=== PATIENT | female | born 1970 | race Caucasian/White ===

== ENCOUNTER 2024-12-24 01:18 | Day surgery (SDC) | payer BC, SELFPAY ==
--- OUTSIDE RECORDS SUMMARY | 2024-09-02 04:20 | XMS_ITS | Continuity of Care Document ---
Author Organization [facility] Address [address] [place] [address] Phone Care Team Providers Care Assembler [employer] Name Role Phone Ye JESSICA, Carl Unavailable Unavailable Allergies, Adverse Reactions, Alerts Substance Reaction Status Criticality azithromycin Erythema Active No Information Sulfa (Sulfonamide Antibiotics) HivesHives Active No Information Medications Medication Instructions Dosage Effective Dates (start - stop) Status Comments Dupixent 300 mg/2 mL subcutaneous syringe inject 2 milliliter by subcutaneous route every 2 weeks in the abdomen, thigh, or upper arm rotating injection sites 300 MG - Active benzonatate 200 mg capsule take as directed - Active metformin ER 500 mg tablet,extended release 24 hr take as directed - Active FreeStyle Lite Strips take as directed - Active FreeStyle Lancets 28 gauge take as directed - Active Breztri Aerosphere 160 mcg-9mcg-4.8mcg/actuat ion HFA aerosol inhaler take as directed - Active Zepbound 15 mg/0.5 mL subcutaneous pen injector take as directed - Active albuterol sulfate HFA 90 mcg/actuation aerosol inhaler take as directed - Active lisinopril 20 mg-hydrochlorothiazide 12.5 mg tablet take as directed - Active bupropion HCl 150 mg tablet,12 hr sustained-release(smok ing deterrent) take as directed - Active triamcinolone acetonide 0.1 % topical cream take as directed - Active FreeStyle Lite Meter kit take as directed - Active ipratropium 0.5 mg-albuterol 3 mg (2.5 mg base)/3 mL nebulization soln take as directed - Active fluconazole 150 mg tablet take as directed - Active ciclopirox 8 % topical solution take as directed - Active hydrocortisone 2.5 % topical cream take as directed - Active ondansetron HCl 8 mg tablet take as directed - Active nystatin 100,000 unit/gram topical cream take as directed - Active cholecalciferol (vitamin D3) 50 mcg (2,000 unit) capsule take as directed - Active montelukast 10 mg tablet take as directed - No Longer Active Procedures Procedure Date Health Risk Assesment Patient Focused Est (Level 4) OFFICE/OUTPATIENT VISIT Highly Complex Drug Administration (Biol ogic) Est (Level 4) OFFICE/OUTPATIENT VISIT Dupixent Health Risk Assesment Patient Focused Est (Level 4) OFFICE/OUTPATIENT VISIT Health Risk Assesment Patient Focused Highly Complex Drug Administration (Biol ogic) Additional Highly Complex Drug Administr ation (Biologic) Est (Level 4) OFFICE/OUTPATIENT VISIT Dupixent Health Risk Assesment Patient Focused No New (Level 4) OFFICE/OUTPATIENT VISIT 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 , [place], [address], [place]. tel:[phone] Referring Provider: [place], [address] [place] [address], [address] [place] [address], [facility]. tel:[phone] Est (Level 4) OFFICE/OUTPA TIENT VISIT [facility], [address] [place] [address], [id number], tel:[phone] [facility] Dupixent (chief complaint) Body mass index (BMI) 31.0-31.9, adultSevere persistent asthmaCOPDChroni c rhinitis Fe [address] , [place], [address], [place]. tel:[phone] Referring Provider: [place] [facility], [address] [place] [address], [address] [place] [address], [facility]. tel:[phone] Est (Level 4) OFFICE/OUTPA TIENT VISIT [facility], [address] [place] [address], [id number], [place] tel:[phone] [facility] Dupixent (chief complaint) Severe persistent asthmaCOPDChroni c rhinitisBody mass index (BMI) 31.0-31.9, adult [address]. [address] [place], [address], [place]. tel:[phone] Referring Provider: [place], [address] [place] [address], [address] [place] [address], [facility]. tel:[phone] Est (Level 4) OFFICE/OUTPA TIENT VISIT [facility], [address] [place] [address], [id number], tel:[phone] [facility] Dupixent (chief complaint) Body mass index (BMI) 32.0-32.9, adultSevere persistent asthmaCOPDChroni c rhinitis [address], [place], [address], [place]. tel:[phone] Referring Provider: [place], [address] [place] [address], [address] [place] [address], [address]. tel:[phone] [facility], [address] [place] [address], [id number], tel:[phone] [facility] No Information [address] [place], [address], [place]. tel:[phone] New (Level 4) OFFICE/OUTPA TIENT VISIT [facility], [address] [place] [address], [id number], tel:[phone] [facility] [place] (chief complaint) Body mass index (BMI) 31.0-31.9, adultSevere persistent asthmaCOPDChroni c rhinitisDrug reaction, initial encounter [address] [place], [address], [place]. tel:[phone] Referring Provider: [place], [address] [place] [address], [address] [place] [address], [address]. tel:[phone] [facility], [address] [place] [address], [id number], [place] tel:[phone] [facility] No Information [address] [place], [address], [place]. tel:[phone] Referring Provider: None None. [facility], [address] [address], [place], [place], [id number], [place] tel:[phone] [facility] Location No Information [facility] Prov. . Referring Provider: None None. Family History Family Member Type Diagnosis Age At Onset Brother Problem Rhinitis Problem No family history of Asthma Payers Payer name Insurance type Covered democrat ID Treverdanyel franco(s) [facility] [id number] Social History Type Description Quantity Date Captured Comments Alcohol Use Details Unknown Caffeine Use Details Unknown Tobacco Use Status Ex-cigarette smoker 025 Smoking Status Former smoker Smoking Tobacco Use Details Cigarette: Age Stopped: 52, Years Used 39 Cigarette: 1 Packs per day, Pack Year: 38 Sex Female Gender Identity Vital Signs Date / Time: Height Weight BMI Pulse Rate Blood Pressure Temperature Respiratory Rate Body Surface Area Head Circumference Head Circ. Percentile Wt./Dada. Percentile BMI percentile Pulse Ox Inhaled Ox 9:29 AM 59.00 in 63.140 kg (139.20 lbs) 28.1 1 kg/m eter (2) 78 /min 128/76 mm[Hg] 98.00 F 1.62 meter(2) 98 % Chief Complaint And Reason For Visit From encounter dated '09/02/2024 09:20'. asthma (chief complaint). Description: LV: 05/05/24Darcy has asthma, COPD, and rhinitis. She presents for follow up. Asthma / COPD - ACT: Sheboni is on Breztri 2 puffs BID, montelukast (singulair) 10 mg daily, and albuterol PRN (used about 1 time daily). She is also on Dupixent 300 mg [id number] (started 04/07/24). She tolerates the Dupixent injections without issue. Since our last visit, she has not had any nocturnal awakenings with respiratory symptoms. She continues to have exertional limitations due to dyspnea, but this has improved. She has been able to walk on a treadmill that she purchased. No interval flares nor requirement for oral steroids. She reports she is ?10,000 times” better than one year ago. She feels this has done her more better than the singulair and wonders if this can be discontinued. She wants to continue using the medication. No interval ED/UC visits nor any oral steroids for flared symptoms. Last course of steroids was prescribed in Jan 2024. Raul is on montelukast (singulair) 10 mg daily. Her nasal symptoms are controlled. Data02/18/24Environmental Immunocaps: +house dust mites, cockroach, tree ([place]), and weedsTotal IgE Anti-MPO and anti-PR3: negativeAf IgE <0.10Total IgE 482+BIANCA 1:320, [id number]/7/24Abs Eos CXR*No acute cardiopulmonary abnormality Reason For Referral Reason For Referral No Information Plan Of Treatment Date Type Action Status Goal Tobacco cessation counseling completed Appointment Sandrita Kendall BOOKED History Of Present Illness Encounter Date Complaint History Of Prese nt Illness asthma LV: 05/05/24She h as asthma, COPD, and rhinitis. She presents for follow up. Asthma / COPD - ACT: Darcy is on Breztri 2 puffs BID, montelukast (singulair) 10 mg daily, and albuterol PRN (used about 1 time daily). She is also on Dupixent 300 mg [id number] (started 04/07/24). She tolerates the Dupixent injections without issue. Since our last visit, she has not had any nocturnal awakenings with respiratory symptoms. She continues to have exertional limitations due to dyspnea, but this has improved. She has been able to walk on a treadmill that she purchased. No interval flares nor requirement for oral steroids. She reports she is 1 0,000 times better than one year ago. She feels this has done her more better than the singulair and wonders if this can be discontinued. She wants to continue using the medication. No interval ED/UC visits nor any oral steroids for flared symptoms. Last course of steroids was prescribed in Jan 2024. RhinitisShe is on montelukast (singulair) 10 mg daily. Her nasal symptoms are controlled. Data02/18/24Environmental Immunocaps: +house dust mites, cockroach, tree ([place]), and weedsTotal IgE 69847Anti-MPO and anti-PR3: negativeAf IgE <0.10Total IgE 482+BIANCA 1:320, [id number] Eos CXR*No acute cardiopulmonary abnormality Dupixent LV: 04/21/24She h as asthma, COPD, and rhinitis. She presents for follow up. She started Dupixent 300 mg [id number] on 04/07/24.Asthma / COPD - ACT: 03/18She is on Breztri 2 puffs BID, montelukast (singulair) 10 mg daily, and albuterol PRN (used about 3-4 times daily). She tolerates the Dupixent injections without issue. Since our last visit, she has not had any nocturnal awakenings with respiratory symptoms. She continues to have exertional limitations due to dyspnea. No interval flares nor requirement for oral steroids. She has some ocular dryness, minimal ocular pruritus. RhinitisShe is on montelukast (singulair) 10 mg daily. Her nasal symptoms are controlled. Data02/18/24Environmental Immunocaps: +house dust mites, cockroach, tree ([place]), and weedsTotal IgE 16490/Anti-MPO and anti-PR3: negativeAf IgE <0.10Total IgE 482+BIANCA 1:320, [id number] Eos CXR*No acute cardiopulmonary abnormality Dupixent LV: 04/07/24She h as asthma, COPD, and rhinitis. She presents for follow up. She started Dupixent on 04/07/24.Asthma / COPD - ACT: 02/16She is on Breztri 2 puffs BID, montelukast (singulair) 10 mg daily, and albuterol PRN (used about 3-4 times daily). She tolerates the Dupixent injections without issue. Since our last visit, she has not had any nocturnal awakenings with respiratory symptoms. She continues to have exertional limitations due to dyspnea. No interval flares nor requirement for oral steroids. RhinitisDarcy is on montelukast (singulair) 10 mg daily. Her nasal symptoms are controlled. Data02/18/24Environmental Immunocaps: +house dust mites, cockroach, tree ([place]), and weedsTotal IgE 59430Anti-MPO and anti-PR3: negativeAf IgE <0.10Total IgE 482+BIANCA 1:320, [id number] Eos CXR*No acute cardiopulmonary abnormality Dupixent LV: 02/12/24Darcy has asthma, COPD, and rhinitis. She presents for follow up / Dupixent initiation.Asthma / COPD - ACT: 12/17She is on Breztri 2 puffs BID, montelukast (singulair) 10 mg daily, and albuterol PRN (used about 3-4 times daily).Since our last visit, she has not had any nocturnal awakenings with respiratory symptoms. She continues to have exertional limitations due to dyspnea. No interval flares nor requirement for oral steroids. RhinitisDarcy is on montelukast (singulair) 10 mg daily.Data02/18/24Environmental Immunocaps: +house dust mites, cockroach, tree ([place]), and weedsTotal IgE 13467/Anti-MPO and anti-PR3: negativeAf IgE <0.10Total IgE 482+BIANCA 1:320, [id number] Eos CXR*No acute cardiopulmonary abnormality asthma Asthma + COPD - ACT: patient has asthma on Breztri 2 puffs BID (started July 2023), montelukast (singulair) 10 mg daily, and albuterol PRN (used about 3-4 times daily). The patient was recently discharged from the hospitalization 02/06-. She was not admitted to the ICU. She was treated with oral steroids (a total of 6 weeks of therapy). She had another hospitalization in July 2023, which was when her symptoms were first diagnosed as COPD / asthma overlap. She had a PFT in AugustSeptember 2023 which showed COPD, with some bronchodilator response.Currently, they have exertional limitations 2/2 cough and wheeze. She is unable to mop her floors or do housework. They deny nocturnal awakenings with cough/wheeze (except with recent flare). She has had 3 flares total in the last 6 months (July, September, Jan 2024). She follows with Dr. Davis in Pulmonology.RhinitisThe patient has a history of perennial rhinitis with seasonal worsening in spring/fall. The symptoms include congestion, rhinorrhea (ant/post), sneezing w/ ocular pruritus and tearing. Currently, the patient is on montelukast (singulair) 10 mg daily, which does provide adequate relief. Previously they have tried Flonase PRN and cetirizine (zyrtec) daily.PMH: thrombocytosis, iron deficiency anemiaPSH: noneMedication Allergies: Sulfa - She had hives on legs and chest. She treated with benadryl. She stopped taking the medication, which resolved the episode. This occurred in 1.5 years ago. Azithromycin - She reports immediate erythema after IV azithromycin last week (she tolerated it the day before orally). FHAsthma - noneRhinitis - brotherSHTobacco: Former Smoker (1 ppd x 38 years; quit July 2023)Not workingEnvironmental HistoryLives in a house w/ central air/forced heat, w/o evidence of mold/water damagePets: cats x 2DataI reviewed outside records available in the EMR + shared by patient on her phone (from [place])02/08/24Anti-MPO and anti-PR3: negativeAf IgE <0.10Total IgE 482+BIANCA 1:320, upzprsvjyz69/7/24Abs Eos CXR*No acute cardiopulmonary abnormality Functional Status Date Functional Assessmen t No Information Instructions Date Instruction Additional Infor nareshjohnathon Giving encouragement to exercise Related to Body mass index [BMI] 28.0-28.9, adult Giving encouragement to exercise Related to Body mass index [BMI] 31.0-31.9, adult Giving encouragement to exercise Related to Body mass index [BMI] 31.0-31.9, adult Giving encouragement to exercise Related to Body mass index [BMI] 32.0-32.9, adult Giving encouragement to exercise Related to Body mass index [BMI] 31.0-31.9, adult Assessments Type Assessment Date assessment Body mass index [BMI] 28.0-28.9, adult assessment Severe persistent asthma 2024 assessment COPD assessment Chronic rhinitis Patient Care Teams Name Effective Dates (start - stop) Status Members No Information
[2024-11-19 13:19] VITALS: BMI 26.6
--- OUTSIDE RECORDS SUMMARY | 2024-12-24 01:21 | XMS_ITS | Data Portability ---
Author Organization [place] [facility] Main Office Address [address] [place] [address] Assessment No assessment recorded. Plan of Treatment Reminders Order Date Submit Date Provider Last Modified By Organization Details Last Modified Time Details Appointments None recorded. Lab calcium, ionized, blood 2023 024 [email or web address] [id number] Not available 4 09:30:14 HbA1c (hemoglobin A1c), blood 2023 024 [email or web address] 477 Not available 4 09:30:14 BMP, serum or plasma 2023 024 [email or web address] [id number] Not available 4 09:30:14 Referral None recorded. Procedures None recorded. Surgeries None recorded. Imaging None recorded. Medication Orders nicotine 14 mg/24 hr daily transdermal patch 2023 024 [id number], [address], [place], [id number], 4 14:34:34 nicotine 7 mg/24 hr daily transdermal patch 2023 024 [id number], [address], [place], [id number], 4 14:34:41 Zepbound 12.5 mg/0.5 mL subcutaneou s pen injector 2023 024 [facility], [address] [facility] , [place], [address], 4 14:24:08 Zepbound 5 mg/0.5 mL subcutaneou s pen injector 2023 024 [email or web address] #40010, [address], [place], [id number], 4 10:11:58 Ozempic 0.25 mg or 0.5 mg (2 mg/3 mL) subcutaneou s pen injector 2022 023 [email or web address] [facility] #[id number], [address], [place], [id number], 10:44:33 Patient TargetsNo targets recorded. Patient InstructionsNo instructions recorded. Reason for Referral None Reported. Results Created Date Observation Date Name Description Value Unit Range Abnormal Flag Note LastModifiedBy Organization Detail LastModifiedTime 05/22/19 24 05/22/2023 urina lysis , dipst ick Leukocytes (reference range: negative bhumi/ l) Negati ve Not Available [address], [place], [address], 05/22/2023 16:02:18 05/22/19 24 05/22/2023 urina lysis , dipst ick Nitrite (reference rage: negative mg/dl) negati ve Not Available [address], [place], [address], 05/22/2023 16:02:18 05/22/19 24 05/22/2023 urina lysis , dipst ick Urobilinogen (reference range: 0.2-1 mg/dl) 0.2 Not Available [address], [place], [address], 05/22/2023 16:02:18 05/22/19 24 05/22/2023 urina lysis , dipst ick Protein (reference range: negative mg/dl) Negati ve Not Available [address], [place], [address], 05/22/2023 16:02:18 05/22/19 24 05/22/2023 urina lysis , dipst ick pH (reference range: 5-7) 7.0 Not Available [address], [place], [address], 05/22/2023 16:02:18 05/22/19 24 05/22/2023 urina lysis , dipst ick Blood (reference range: negative Emilio/ l) Negati ve Not Available [address], [place], [address], 05/22/2023 16:02:18 05/22/19 24 05/22/2023 urina lysis , dipst ick Specific Avis (reference range: 1.005-1.030) 1.020 Not Available [address], [place], [address], 05/22/2023 16:02:18 05/22/19 24 05/22/2023 urina lysis , dipst ick Ketone (reference range: negative mg/dl) Negati ve Not Available [address], [place], [address], 05/22/2023 16:02:18 05/22/19 24 05/22/2023 urina lysis , dipst ick Bilirubin (reference range: negative mg/dl) Negati ve Not Available [address], [place], [address], 05/22/2023 16:02:18 05/22/19 24 05/22/2023 urina lysis , dipst ick Glucose (reference range: negative mg/dl) Negati ve Not Available [address], [place], [address], 05/22/2023 16:02:18 05/22/19 24 05/22/2023 urina lysis , dipst ick Appearance Clear Not Available [address], [place], [address], 05/22/2023 16:02:18 05/22/19 24 05/22/2023 urina lysis , dipst ick Color Pale Yellow Not Available [address], [place], [address], 05/22/2023 16:02:18 Result Notes None recorded. Problems Name Problem SNOMED Code Status Onset Date Resolution Date Notes Provider Name and Address Organization Details Recorded Time Hypertensive disorder 38722177 Active 2009 Ciarra Shell MA null, [employer] 3 11:19:28 Essential hypertension 04436112 Active 2022 Jamal Simental, PROJECT CONTROL MANAGER-C [address], [place], [address], [employer] 3 11:35:16 Cobalamin deficiency 139171326 Active 2022 Jamal Simental [employer]JECT CONTROL MANAGER[employer] [address], [place], [address], [employer] 3 11:42:23 Vitamin D deficiency 62977606 Active 2022 Jamal Simental, PROJECT CONTROL MANAGER-C [address], [place], [address], [employer] 3 11:42:33 Fatigue 33458783 Active 2022 Jamal Simental, PROJECT CONTROL MANAGER-C [address], [place], [address], [employer] 3 11:51:07 Nicotine dependence 65326011 Active 2022 HENRY Wray [address], [place], [address], [employer] - [facility] [employer] 3 12:00:01 Prediabetes 103308249 Active 2022 HENRY Wray [address], [place], [address], [employer] [facility] [employer] 3 11:18:53 Hyperlipidemia 97866324 Active 2022 Traci Gonzalez MD [address], [place], [address], [employer] [facility] [employer] 3 09:51:16 Cough 93705202 Active 2023 Traci Gonzalez MD [address], [place], [address], [employer] [facility] [employer] 4 13:17:16 Candidiasis of vagina 63509559 Active 2023 HENRY Wray [address], [place], [address], [employer] [facility] [employer] 4 17:57:34 Dysuria 20152404 Active 2023 HENRY Wray [address], [place], [address], [employer] [facility] [employer] 4 16:02:14 Hypercalcemia 44785962 Active 2023 Traci Gonzalez MD [address], [place], [address], [employer] [facility] [employer] 4 10:42:23 Nausea 518978232 Active 2023 Traci Gonzalez MD [address], [place], [address], [employer] [facility] [employer] 4 13:34:43 Vomiting of 85490010 Active 2023 Traci Gonzalez MD [address], [place], [address], [employer] 4 13:34:49 Intertrigo 61704887 Active 2023 Traci Gonzalez MD [address], [place], [address], [employer] 4 16:28:56 Bronchitis 83515007 Active 2023 Traci Gonzalez MD [address], [place], [address], [employer] 4 18:07:35 Thrombocytosis 4061430 Active 2023 Traci Gonzalez MD [address], [address] [facility], [place], [address], [employer] 4 14:29:50 Acute exacerbation of chronic obstructive pulmonary disease 597584498 Active 2023 Traci Gonzalez MD [address], [place], [address], [employer] 4 14:35:37 Problem Notes None recorded. Medical Equipment None Reported. Allergies No known drug allergies Medications Name Sig Start Date Stop Date Status Note LastModified by Organization Details LastModified Time Prescriptio n - Prior Authorizati on Request active Not Available Not Available N ot Available metformin 500 mg tablet Take 1 tablet twice a day by oral route for 90 days. 01/16 completed Not Available Not Available Not Available bupropion HCl SR 150 mg tablet,12 hr sustained-r elease 1 po bid active Not Available Not Available Not Available nystatin 100,000 unit/mL oral suspension 02/25 completed Not Available Not Available Not Available prednisone 10 mg tablet active Not Available Not Available Not Available doxycycline hyclate 100 mg capsule active Not Available Not Available N ot Available nicotine 14 mg/24 hr daily transdermal patch Apply 1 patch every day by transderm al route. active Not Available Not Available No t Available ipratropium 0.5 mg-albutero l 3 mg (2.5 mg base)/3 mL nebulizatio n soln active Not Available Not Available Not Available lisinopril 20 mg-hydrochl orothiazide 12.5 mg tablet active Not Available Not Available Not Available azithromyci n 250 mg tablet TAKE 2 TABLETS (500 MG) BY ORAL ROUTE ONCE DAILY FOR 1 DAY THEN 1 TABLET (250 MG) BY ORAL ROUTE ONCE DAILY FOR 4 DAYS active Not Available Not Available No t Available fluconazole 150 mg tablet Take 1 tablet every 72 hours by oral route. 08/04 completed Not Available Not Available Not Available benzonatate 200 mg capsule active Not Available Not Available Not Available ondansetron HCl 8 mg tablet Take 1 tablet 3 times a day by oral route as needed. active Not Available Not Available No t Available FreeStyle Lancets 28 gauge active Not Available Not Available Not Available prednisone 20 mg tablet Take 2 tablets every day by oral route for 5 days. active Not Available Not Available No t Available estradiol 0.1 mg/24 hr semiweekly transdermal patch active Not Available Not Available Not Available estradiol 0.05 mg/24 hr semiweekly transdermal patch active Not Available Not Available Not Available triamcinolo ne acetonide 0.1 % topical cream active Not Available Not Available Not Available ciclopirox 8 % topical solution active Not Available Not Available Not Available terbinafine HCl 250 mg tablet active Not Available Not Available Not Available cephalexin 500 mg capsule 02/25 completed Not Available Not Available Not Available nystatin 100,000 unit/gram topical cream APPLY TO THE AFFECTED AREA(S) BY TOPICAL ROUTE 2 TIMES PER DAY as needed active Not Available Not Available No t Available progesteron e micronized 200 mg capsule active Not Available Not Available Not Available nicotine 21 mg/24 hr daily transdermal patch active Not Available Not Available Not Available hydrocortis one 2.5 % topical cream active Not Available Not Available Not Available montelukast 10 mg tablet active Not Available Not Available Not Available albuterol sulfate HFA 90 mcg/actuati on aerosol inhaler Inhale 2 puff(s) every 4 hours by inhalatio n route. active Not Available Not Available No t Available cefdinir 300 mg capsule 08/04 completed Not Available Not Available Not Available metformin ER 500 mg tablet,exte nded release 24 hr active Not Available Not Available Not Available amoxicillin 875 mg-potassiu m clavulanate 125 mg tablet 02/25 completed Not Available Not Available Not Available nicotine 7 mg/24 hr daily transdermal patch Apply 1 patch every day by transderm al route. active Not Available Not Available No t Available progesteron e active Not Available Not Available Not Available FreeStyle Lite Meter kit active Not Available Not Available Not Available FreeStyle Lite Strips active Not Available Not Available Not Available cholecalcif octavio (vitamin D3) 50 mcg (2,000 unit) capsule Take 1 capsule by oral route. active Not Available Not Available No t Available Victoza 2-Justin 0.6 mg/0.1 mL (18 mg/3 mL) subcutaneou s pen injector 0.6 ml sc qday x 1 week then 1.2 mg sc qday x 1 week then 1.8 mg sc qday 03/21 completed Not Available Not Available Not Available bupropion HCl 150 mg tablet,12 hr sustained-r elease(smok ing deterrent) Take 1 tablet twice a day by oral route. active Not Available Not Available No t Available semaglutide active Not Available Not A vailable Not Available Breztri Aerosphere 160 mcg-9mcg-4. 8mcg/actuat ion HFA aerosol inhaler active Not Available Not Available Not Available Wegovy 0.25 mg/0.5 mL subcutaneou s pen injector 0.25 mg sc qweek 03/21 completed Not Available Not Available Not Available Flowflex COVID-19 Antigen Home Test kit active Not Available Not Available Not Available Ozempic 0.25 mg or 0.5 mg (2 mg/3 mL) subcutaneou s pen injector Inject by subcutane ous route for 28 days. 05/26 completed Not Available Not Available Not Available Zepbound 10 mg/0.5 mL subcutaneou s pen injector INJECT 1 SYRINGE SUBCUTANE OUSLY ONCE A WEEK active Not Available Not Available No t Available Zepbound 5 mg/0.5 mL subcutaneou s pen injector INJECT 1 SYRINGE SUBCUTANE OUSLY ONCE A WEEK WITH 2.5MG 07/23 completed Not Available Not Available Not Available Zepbound 2.5 mg/0.5 mL subcutaneou s pen injector active Not Available Not Available Not Available Zepbound 15 mg/0.5 mL subcutaneou s pen injector active Not Available Not Available Not Available Zepbound 12.5 mg/0.5 mL subcutaneou s pen injector Inject by subcutane ous route for 28 days. active Not Available Not Available No t Available Zepbound 7.5 mg/0.5 mL subcutaneou s pen injector 0.5 ml sc qweek 07/23 completed Not Available Not Available Not Available Vitals Date Recorded Body height Body mass index (BMI) Body weight Body temperature Heart rate Oxygen saturation Oxygen saturation in Arterial blood by Pulse oximetry Systolic And Diastolic Provider Name and Address Organization Details Last Updated DateTime 4 149.86 cm 32.7 kg/m2 87513.9 6 g 98.1 [degF] 118 /min 92 % 92 % 142/82 mm[Hg] Sriram Wisdom RN [facility] [employer] 4 10:31:19 Date Recorded Body height Body mass index (BMI) Body weight Body temperature Heart rate Oxygen saturation Oxygen saturation in Arterial blood by Pulse oximetry Systolic And Diastolic Provider Name and Address Organization Details Last Updated DateTime 4 149.86 cm 31.5 kg/m2 84782.4 1 g 98.2 [degF] 133 /min 94 % 94 % 124/80 mm[Hg] Sriram Wisdom RN [facility] [employer] 4 14:15:42 Date Recorded Body height Provider Name an d Address Organization Details Last Updated DateTime 01/24/2023 149.86 cm Kerrie Bernardo LPN [facility] [employer] 01/24/2023 10:08:30 Date Recorded Body height Body mass index (BMI) Body weight Body temperature Heart rate Oxygen saturation Oxygen saturation in Arterial blood by Pulse oximetry Systolic And Diastolic Provider Name and Address Organization Details Last Updated DateTime 3 149.86 cm 34.9 kg/m2 63862.4 8 g 97.7 [degF] 125 /min 91 % 91 % 168/100 mm[Hg] Sriram Wisdom RN [facility] [employer] 3 09:21:06 Social History Question Answer Notes LastModified by Organizat ion Details LastModified Time Tobacco Smoking Status Current Every Day Smoker RAYA Hans[facility] 02/25/2023 09:17:17 Do You Have An Advance Directive? No Information not available 01/14/2023 Is Blood Transfusion Acceptable In An Emergency? Yes Information not available 02/25/2023 What Is Your Level Of Caffeine Consumption? Occasional Information not available 01/14/2023 What Is Your Code Status? Full Code [email or web address] Information not available 02/25/2023 In The 14 Days Before Symptom Onset, Have You Had Close Contact With A Laboratory-confi rmed COVID-19 While That Case Was Ill? No [email or web address] Information not available 02/25/2023 In The 14 Days Before Symptom Onset, Have You Had Close Contact With A Person Who Is Under Investigation For COVID-19 While That Person Was Ill? No [email or web address] Information not available 02/25/2023 What Type Of Diet Are You Following? REGULAR Information not available 01/14/2023 What Is The Highest Grade Or Level Of School You Have Completed Or The Highest Degree You Have Received? [id number] Information not available 02/25/2023 Have There Been Any Changes To Your Family Or Social Situation? No Information not available 02/25/2023 What Is The Fluoride Status Of Your Home? Fluoridated Information not available 02/25/2023 Are There Any Guns Present In Your Home? No [email or web address] Information not available 02/25/2023 Do You Use Insect Repellent Routinely? Yes [email or web address] Information not available 02/25/2023 Where Do You Live? SingleLevelHouse [email or web address] Information not available 02/25/2023 Do You Have A Medical Power Of Men'S Basketball Coach? No [email or web address] Information not available 02/25/2023 What Is Your Current Pack Years? 20-29packyears [email or web address] Information not available 02/25/2023 Have You Ever Been Counseled For Unhealthy Alcohol Use? No [email or web address] Information not available 02/25/2023 Do You Have Any Pets? Yes Information not available 02/25/2023 Do You Use Protection During Sex? Always [email or web address] Information not available 02/25/2023 What Is Your Relationship Status? Information not available 01/14/2023 Do You Use Your Seat Belt Or Car Seat Routinely? Yes [email or web address] Information not available 02/25/2023 Are You Sexually Active? Yes [email or web address] Information not available 02/25/2023 Do You Have Smoke And Carbon Monoxide Detectors In Your Home? Yes Information not available 02/25/2023 At What Age Did You Start Smoking Tobacco? 16 Information not available 02/25/2023 Are You Passively Exposed To Smoke? Yes [email or web address] Information not available 02/25/2023 Are There Any Smokers In Your House? Yes Information not available 02/25/2023 How Much Tobacco Do You Smoke? 1 PPD Information not available 01/14/2023 Do You Participate In Social Media? Yes [email or web address] Information not available 02/25/2023 Do You Use Sunscreen Routinely? Yes [email or web address] Information not available 02/25/2023 Has Tobacco Cessation Counseling Been Provided? No [email or web address] Information not available 02/25/2023 How Many Years Have You Smoked Tobacco? 20 Information not available 02/25/2023 Have You Recently Traveled Abroad? No Information not available 02/25/2023 Are You Currently In School? No Information not available 02/25/2023 Do You Have Any Dietary Restrictions? No [email or web address] Information not available 02/25/2023 Sex: Unknown Functional Status Question Answer Note LastModified by Organizat ion Details LastModified Time Do you use any illicit or recreational drugs? No [email or web address] Information not available 02/25/2023 Do you or have you ever used any other forms of tobacco or nicotine? No Information not available 02/25/2023 What is your level of alcohol consumption? Occasional Information not available 01/14/2023 Are you currently employed? No [email or web address] Information not available 02/25/2023 What is your exercise level? Occasional Information not available 01/14/2023 Mental Status Question Answer Note LastModified by Organization D etails LastModified Time Do you feel stressed (tense, restless, nervous, or anxious, or unable to sleep at night)? [id number] Information not available 02/25/2023 Family History Relationship Description Onset Age of this Age Resolved Age Notes LastModified by Organization Details LastModified Time Mother Type 2 diabetes mellitus Not available 2022 11:20:41 Mother Hypothyroidi sm Not available 2022 11:21:13 Medical History No medical history recorded. Gynecological History Statement/Question Response Abnormal Pap Y Flow Moderate Date of LMP 10/23/2022 Frequency of Cycle (Q days) Menses Monthly N Current Control Method Other Age at Menarche 12 Obstetrics History GPAL:G 1 P 1 0 0 0 Type Value Full Term 1 Total 1 Immunizations Vaccine Type Date Status Note Provider Nam e and Address Organization Details Recorded Time Influenza, split virus, quadrivalent, PF 01/14/2023 completed PANCHITO Mathews, [place] - [facility] [employer] 01/14/2023 14:33:50 Past Encounters Encounter ID Performer Location Encounter Start Date Encounter Closed Date Diagnosis/Indication Diagnosis SNOMED-CT Code Diagnosis ICD10 Code Diagnosis IMO Codes Diagnosis Note [id number] Traci Gonzalez MD [facility] Primary Care [address] [place] [address] 01/14/2023 11:05:07 01/14/2023 12:53:29 Essential hypertension 20258732 I10 currently takes lisinopril 20mg-hctz 12.5notes that she has white coat syndromeen couraged to come in for weekly bp checkswill hold off on treating until next visit Adult heal th examination 943666281 Z00.00 Encouraged fresh fruits and veggies-no tabatha low intakeIncr ease daily water intake-has recently slowed down on intakeEnco urage 30 mins of daily exercise-l ow energy, no exerciseCo lonoscopy- orderedWel l woman exams-not up to date on mammogram- ordered Cobalamin deficiency 190 244414 E53.8 Vitamin D deficiency 347 45669 E55.9 Screening for malignant neoplasm of colon 687693557 Z12.11 Screening mammography 24 889498 Z12.31 Fatigue 12075710 R53.83 had long covidnotes increased SOB during walking a city block or going up/down staircompl eting lab work today Nicotine dependence 5629 4008 F17.200 she smokes 1/2-1ppdha s tried buproprion in the past, but didn't stick to itshe is agreeable to try bupropion again-orde redf/u in 1 month Administra tion of influenza vaccine 17774848 Z23 [id number] Traci Gonzalez MD [facility] Primary Care [facility] [address] [facility] [address] [place] [address] 01/24/2023 10:03:09 02/05/2023 04:05:26 [id number] Traci Gonzalez MD [facility] Primary Care [facility] [address] [facility] [address] [place] [address] 02/25/2023 09:15:52 02/25/2023 09:50:52 Essential hypertension 00869806 I10 h/o white coat hypertensi onshe is purchasing home cuff and will check weekly bpsf/u in 3 monthscont inue lisinopril 20/12.5 mg daily Prediabetes 143164695 R7 3.03 cannot tolerate metformin due to GI distressA1 c 6.2h/o gestationa l diabetestr ial of ozempic 0.25 mg sc qweek, plan to titrate up monthly as toleratedf /u in 3 months, will repeat labs at that time Hyperlipidemia 34250775 E78.5 lifestyle changescon tinue fish oil 1200 mg dailyrepea t labs in 3 months [id number] Traci Gonzalez MD [facility] Primary Care [place] [facility] [address] [facility] [address] [place] [address] 05/22/2023 16:31:59 05/22/2023 17:16:07 [id number] Traci Gonzalez MD [facility] Primary Care [place] [facility] [address] [facility] [address] [place] [address] 05/27/2023 10:26:29 05/27/2023 10:46:39 Body mass index 30+ - obesity 709891451 Z68.34 doing very wellincrea se zepbound 5 mg daily, plan to titrate monthly to effective dosef/u in 8 weeks or sooner if needed Essential hypertension 30063373 I10 h/o white coat hypertensi onszena is purchasing home cuff and will check weekly bpsf/u in 3 monthscont inue lisinopril 20/12.5 mg daily update 05/27/23: doing wellhome readings are excellentp lowell labs in 8 weeks Prediabetes 951489802 R7 3.03 cannot tolerate metformin due to GI distressA1 c 6.2h/o gestationa l diabetestr ial of ozempic 0.25 mg sc qweek, plan to titrate up monthly as toleratedf /u in 3 months, will repeat labs at that time update 05/27/23: has lost 11 poundsincr ease zepbound as noted abovecheck labs prior to next appt Hypercalcemia 25620654 E 83.52 [id number] Traci Gonzalez MD [facility] Primary Care [facility] [address] [facility] [address] [place] [address] 08/05/2023 14:11:52 08/05/2023 14:35:37 Body mass index 30+ - obesity 166433765 Z68.34 doing very wellincrea se zepbound 5 mg daily, plan to titrate monthly to effective dosef/u in 8 weeks or sooner if needed 08/05/23: increase zepbound to 12.5 mg sc qweek Thrombocytosis 2204888 D 75.839 improving, repeat labs in 3 months Tobacco user 879370419 Z 72.0 after completing nicotine 21 mg patch Acute exac erbation of chronic obstructive pulmonary disease 158897804 J44.1 now tobacco freehas completed steroids and abx, feeling much bettercoug h and wheezing improvedha s upcoming appt for PFT and pulmonary in August Health Concerns Section Related Observation LastModified by Organization Detai ls LastModified Time None Recorded Concern Status LastModified by Organization Details LastModified Time None Recorded Advance Directives Directive N: Payers Insurance Date Sequence Insurance Name Policy Number Policy Layne Covered Member ID Layne Member ID Guarantor Name 11/02/2023 1 [employer] (PPO) [id number] Vernon Kendall LCDA [id number] Sandrita Kendall Notes Date Note Type Note Provider Name and Address Organization Details Recorded Time 02/25/2023 text/html ROS as noted in the HPI Here to f/u. Labs showed a1c 6.2, she had to d/c metformin due to persistent diarrhea. Lipids showed trig 372, she has started fish oil daily and is watching diet. Traci Gonzalez MD [address], [address], [place], [address], [employer] 02/25/2023 09:52:15 05/27/2023 text/html ROS as noted in the HPI Here to f/u. Labs showed a1c 6.2, she had to d/c metformin due to persistent diarrhea. Lipids showed trig 372, she has started fish oil daily and is watching diet. update 05/27/23: home blood pressure readings are excellent. She is feeling well on zepbound, tolerating 2.5 mg and would like to increase Traci Gonzalez MD [address], [address], [place], [address], [employer] 05/27/2023 10:45:50 08/05/2023 text/html ROS as noted in the HPI will have pft and f/u with pulmonary 08/2023 quit smoking about 10 days ago, on nicotine patch labs done 07/31/23 showed repeat wbc and platelet improved Traci Gonzalez MD [address], [place], [address], [employer] 08/11/2023 11:24:33 OBGyn Episode Ob Episode Information Episode Created Date Number of Fetuses Patient Bloodtype Patient rh Status Prepregnancy Weight lbs Domestic Partner Domestic Partner Phone Father Name Senior Research Engineer Status 01/15/20 23 1 CLOSED Fetus Data First Name Last Name Admitted to NICU Weight (g) Sex Living Outcome Pediatric Complications Fetus ID Race Codes Race Delivery Type F Full Term 622 Elio Calculation Initial Elio Date Initial Exam Date Initial Exam Provider Initial Ultrasound Date Last Menstrual Period Date Ultra Sound Weeks Gestation 0 Eighteen To Twenty Week Elio Update Ultra Sound Date Fundal Height At Umbil Quickening Date Ultra Sound Latest Weeks Gestation Final Elio Confirmed By Final Elio Confirmed Date Final Elio Date Ultra Sound Latest Days Gestation 0 0 Menstrual History Last Menstrual Date Menses Monthly On Bcp Conception Prior Menses Frequency Hcg Plus Date Menarche Onset Age Delivery Information Delivery Date Delivery Type Labor Anesthesia Weeks Gestation Incision Type Labor Labor Length Hrs Delivered By Post Complications Tubal Sterilization Discharge Date Comments 9 Discharge Information Feeding Method Contraceptive Method Maternal HG B and HCT Levels
--- OUTSIDE RECORDS SUMMARY | 2024-12-24 01:21 | XMS_ITS | Clinical Summary ---
Author Organization [place] [address] [facility] Address Formerly [facility] [place] [address] Care Team Providers Care Soakers Supervisor Name Role Phone Ashley Dumont MD Primary Care Provi cee Allergies Active Allergy Reactions Criticality Noted Date Comments Azithromycin Other (See comments) ,Nausea & Vomiting,Redness Low 02/07/2024 Diaphoresis Sulfa Hives Medium 07/26/2023 Medications albuterol HFA (PROVENTIL HFA,VENTOLIN HFA,PROAIR HFA) 90 mcg/actuation inhaler Inhale 2 puffs every 4 (four) hours as needed for shortness of breath Active cholecalciferol (VITAMIN D-3) 2000 unit capsule Take 1 capsule (2,000 Units total) by mouth daily Active lisinopril-hydr oCHLOROthiazide (ZESTORETIC) 20-12.5 mg per tablet Take 1 tablet by mouth daily 07/24/19 24 Active metFORMIN XR (GLUCOPHAGE XR) 500 mg 24 hr tablet Take 1 tablet (500 mg total) by mouth 2 (two) times a day 06/09/19 24 Active ondansetron (ZOFRAN) 8 mg tablet Take 1 tablet 3 times a day by oral route as needed. Active blood-glucose meter miscIndications :One Touch Ultra Meter plus supplies Use daily or as directed for monitoring of diabetes. 1 each 10/09/19 24 Active lancets (freestyle) 28 gauge miscIndications :Prediabetes Use to check blood sugars daily 100 each 3 10/10/19 24 Active blood glucose diagnostic (FreeStyle Lite Strips) stripIndication s:Prediabetes Use to check blood sugars daily 100 each 3 10/10/19 24 Active montelukast (SINGULAIR) 10 mg tablet Take 1 tablet (10 mg total) by mouth nightly 90 tablet 01/15/20 24 Active calcium carbonate (OS-TRINA) 648 mg (260 mg elemental) tablet Take 260 mg by mouth daily Active magnesium oxide (MAG-OX) 415 mg (250 mg elemental) tablet Take 250 mg by mouth nightly Active multivitamin tabletIndicatio ns:Vitamin Deficiency Prevention Take 1 tablet by mouth daily Active buPROPion SR (ZYBAN) 150 mg 12 hr tablet TAKE 1 TABLET(150 MG) BY MOUTH TWICE DAILY 180 tablet 3 05/06/19 25 Active omega-3 fatty acids (LOVAZA) 1 gram capsule Take 2 capsules (2 g total) by mouth 2 (two) times a day 120 capsule 11 05/11/19 25 026 Active Dupixent Pen pen injector 05/13/19 25 Active busPIRone (BUSPAR) 5 mg tablet TAKE 1 TABLET(5 MG) BY MOUTH TWICE DAILY 200 tablet 1 08/11/19 25 Active ezetimibe (ZETIA) 10 mg tablet Take 1 tablet (10 mg total) by mouth daily 90 tablet 3 08/25/19 026 Active ipratropium-alb uteroL (DUO-NEB) 0.5-2.5 mg/3 mL nebulizer solutionIndicat ions:Chronic obstructive pulmonary disease, unspecified COPD type (HCC) USE 3 ML VIA NEBULIZER EVERY 6 HOURS NEEDED FOR WHEEZING OR SHORTNESS OF BREATH 360 mL 6 08/28/19 25 Active aspirin 81 mg enteric coated tablet 09/05/19 25 Active semaglutide (Wegovy) 0.25 mg/0.5 mL auto-injectorIn dications:Histo ry of obesity,Overwei ght (BMI 25.0-29.9) Inject 0.25 mg under the skin every 7 days 2 mL 1 10/17/19 25 Active nystatin powderIndicatio ns:Rash Apply topically 4 (four) times a day 60 g 1 10/29/19 25 026 Active Breztri Aerosphere 160-9-4.8 mcg/actuation inhaler INHALE 2 PUFFS BY MOUTH TWICE DAILY 32.1 g 1 11/26/19 25 Active progesterone (PROMETRIUM) 200 mg capsule 12/01/19 25 Active budesonide-glyc opyr-formoterol (Breztri Aerosphere) 160-9-4.8 mcg/actuation inhaler USE 2 INHALATIONS TWICE A DAY, RINSE MOUTH WITH WATER AFTER USE, DO NOT SWALLOW 32.1 g 1 03/09/20 24 025 Discontinued cefuroxime (CEFTIN) 500 mg tablet Take 1 tablet (500 mg total) by mouth 2 (two) times a day for 7 days 14 tablet 12/02/19 25 025 Active Problems Problem Noted Date Diagnosed Date History of obesity 07/15/2024 Assessment & Plan (08/14/2024 8:41 AM CDT): Chronic, improved Assessment & Plan (07/15/2024 2:46 PM CDT): Chronic, improving Continue zepbound Well adult exam 05/15/2024 Overview (05/15/2024): Reviewed working on a heart healthy diet and activity to her level. Health Maintenance: Last PAP: through [employer] Last mammogram: 07/16-Bir[facility] 2 Last DEXA: @66 Last cologuard: 09/15- Negative Last Tdap: encouraged Last pneumonia: encouraged Last Shingrix: encouraged Last Flu: up to date Last COVID: encouraged Test results: if you have not received communication about test results within 7 days of the test being performed, please contact the office. I strongly encourage [facility] sign ups. It can facilitate communication flow. Please contact the office for instructions on signing up. Assessment & Plan (05/15/2024 10:22 AM DRIVER/MERCHANDISER): Reviewed working on a heart healthy diet and activity to her level. Health Maintenance: Last PAP: through [employer] Last mammogram: 07/16-Birads 2 Last DEXA: @66 Last cologuard: 624- Negative Last Tdap: encouraged Last pneumonia: encouraged Last Shingrix: encouraged Last Flu: up to date Last COVID: encouraged Test results: if you have not received communication about test results within 7 days of the test being performed, please contact the office. I strongly encourage myChart sign ups. It can facilitate communication flow. Please contact the office for instructions on signing up. Hepatic lesion 02/07/2024 Thrombocythemia 02/07/2024 Chronic bronchitis 02/07/2024 Rash 10/25/2023 Assessment & Plan (10/28/2024 8:18 AM CDT): Acute, recurrent Previous treatments ineffective including nystatin and clotrimazole cream - Prescribed nystatin powder twice daily. - Instructed to keep affected area dry. - Advised follow-up in 10 days if no improvement for alternative antifungal treatment. Orders: nystatin powder; Apply topically 4 (four) times a day Assessment & Plan (10/25/2023 9:14 AM CDT): Unclear etiology Possible bed bugs? Chigger bites? Considered scabies due to left wrist and bilateral toe involvement however will have patietn start prednisone taper, topical kenalog, avoid potential triggers. However if no improvement, discussed re-evaluation. Depending on rash presentation and distribution at that time, may consider permethrin. Zyrtec IFG (impaired fasting glucose) 07/30/2023 Assessment & Plan (08/14/2024 8:41 AM CDT): Orders: Comprehensive metabolic panel; Future Hemoglobin A1c; Future Albumin Creatinine Ratio, Urine; Future Assessment & Plan (07/30/2023 9:43 AM CDT): Chronic, stable A1C done in the hospital Continue healthy changes Continue metformin, zepbound Overweight (BMI 25.0-29.9) 07/30/2023 Assessment & Plan (10/28/2024 8:18 AM CDT): Chronic, improved Previously in obesity range and remains pharmacotherapy and follows Weight Watchers Obesity managed with Zepbound, resulting in significant weight loss. Insurance no longer covers Zepbound, necessitating switch to Wegovy. Discussed benefits of strength training for muscle mass and metabolic rate. - Continue Zepbound until supply exhausted- notes she still has 4 months supply - Reschedule appointment to February for Wegovy transition. - Encourage strength training. Assessment & Plan (08/14/2024 8:41 AM CDT): Chronic, stable BMI Follow-up includes: education provided. Assessment & Plan (07/15/2024 2:46 PM CDT): Chronic, improving BMI Follow-up includes: nutrition counseling. Contiue current dose of zepbound Assessment & Plan (05/15/2024 10:23 AM DRIVER/MERCHANDISER): Chronic, improved BMI Follow-up includes: nutrition counseling and exercise counseling. Assessment & Plan (02/12/2024 8:57 AM DRIVER/MERCHANDISER): Chronic, stable BMI Follow-up includes: nutrition counseling. Depression, recurrent 07/30/2023 Assessment & Plan (08/14/2024 8:41 AM CDT): Hypertension 07/26/2023 Assessment & Plan (07/30/2023 9:42 AM CDT): Chronic, stable Continue zestoretic Cigarette nicotine dependence in remission 07/25 Assessment & Plan (10/28/2024 8:18 AM CDT): Former smoker as of 07/2023 Assessment & Plan (07/30/2023 9:44 AM CDT): Currently not smoking! Continue zyban Thrombocytosis 07/26/2023 Assessment & Plan (07/30/2023 9:43 AM CDT): Acute, new Will check labs recheck Leukocytosis 07/26/2023 Assessment & Plan (07/30/2023 9:43 AM CDT): Chronic, improved Follow up labs ordered COPD, severe 07/26/2023 Assessment & Plan (10/28/2024 8:18 AM CDT): Chronic, improving Stage 3 COPD with improved exercise tolerance, now able to walk 40 minutes. Smoking cessation over a year ago. - Encourage continued exercise to maintain lung function. -Continue Breztri Assessment & Plan (08/14/2024 8:41 AM CDT): Hyperlipidemia 02/24/2023 Assessment & Plan (07/30/2023 9:41 AM CDT): Chronic, stable Labs ordered Cobalamin deficiency 01/14/2023 Assessment & Plan (07/30/2023 9:41 AM CDT): Chronic, uncertain level Labs ordered Fatigue 01/14/2023 Vitamin D deficiency 01/14/2023 Assessment & Plan (07/30/2023 9:44 AM CDT): Chronic, currently uncontrolled Will check labs Resolved Problems Problem Noted Date Diagnosed Date Resolved Date Unstable angina 05/11/2024 06/02/2024 COPD exacerbation 02/07/2024 05/15/2024 Type 2 diabetes mellitus, [facility] long-term current use of insulin 02/07/2024 02/12/2024 Acute cough 08/16/2023 10/28/2024 Assessment & Plan (08/16/2023 2:36 PM CDT): VSS, coughing and clearing throat significantly in office, lungs ctab, speaking in complete sentences Recently discharged for bronchitis Smoker, recently quit after hospitalization Ordered chest x-ray to r/o secondary superimposed process, unlikely Likely new viral URI triggering inflammatory response Zyrtec, Flonase x 7 1-0 days Mucinex as cough expectorant Tessalon as cough suppressant prednisone Prednisone 40 mg daily x 5 days. ER for fevers, CP, worsening SOB, significant copious mucus PCP for persisting symptoms Hypoxia 07/26/2023 10/28/2024 Assessment & Plan (07/30/2023 9:42 AM CDT): Chronic, improved- off oxgen! Will check PFTs Will refer to pulmonary Carry albuterol with you Update me with any changes Diabetes 07/26/2023 07/30/2023 Sepsis 07/26/2023 10/28/2024 Hyponatremia 07/26/2023 10/28/2024 Encounters Date Type Department Care Team Description 12/01/2024 11:15 AM CDT Office Visit [facility] [address] [place] [address] Lamar Garcia NP Laceration of right index finger without foreign body without damage to nail, initial encounter (Primary Dx) 10/28/2024 7:00 AM CDT Office Visit [address] [address] Whitney Hope NP Rash (Primary Dx); COPD, severe (HCC); Cigarette nicotine dependence in remission; Overweight (BMI 25.0-29.9) 10/14/[address] [address] Ashley Dumont MD 10/06/[address] [address] Ashley Dumont MD Medical Records Request 10/05/[address] [address] Ashley Dumont MD Prior Auth Request for Bupropion 09/30/2024 9:45 AM CDT Clinical Support [address] [address] Need for vaccination (Primary Dx) from Last 3 Months Immunizations Immunization Administration Dates Next Due Influenza, Quadrivalent, Spl it, Preservative Free, Intramuscular 01/14/2023 Influenza, Trivalent, Preser vative Free, Intramuscular 01/02/2024 Influenza, Unspecified 12/23/2021(Deferred: Shaneka ent Refused) Pneumococcal Conjugate Pcv20 07/15/2024 Tdap 07/15/2024 ZOSTER Recombinant 09/30/2024 Surgical History Surgery Date Site/Laterality Comments BREAST BIOPSY 02/28/2017 Left CERVICAL BIOPSY W/ LOOP ELECTRODE EXCISION 03/25/1993 - 03/24/1994 CARDIAC CATHETERIZATION 05/22/2024 N/A Procedure: LEFT HEART CATHETERIZATION WITH CORONARY ANGIOGRAPHY AND WITH OR WITHOUT LEFT VENTRICULOGRAM 48795; Surgeon: Mary Winchester MD; Location: [facility]; Service: Cardiovascular; Laterality: N/A; Medical devices from this surgery are in the Medical Devices section. Medical History Medical History Date Comments Hypertension Diabetes mellitus pre-diabetic Anxiety Asthma Chronic bronchitis (HCC) Couple years Varicella Hypoxia 07/26/2023 Sepsis (HCC) 07/26/2023 Hyponatremia 07/26/2023 Family History Medical History Relation Name Comments Hypertension Brother Melanoma Father Dc veloz No Known Problems Maternal Grandfather No Known Problems Maternal Grandmother COPD Mother Jaundonya Gonzalez Diabetes Mother Jaunita Gonzalez Heart attack Mother Jaundonya Gonzalez Heart disease Mother Jaunita Gonzalez Hypertension Mother Jaunita Gonzalez Obesity Mother Jaunita Gonzalez Stroke Mother Jaunita Gonzalez COPD Paternal Grandfather No Known Problems Paternal Grandmother Diabetes Sister Hypertension Sister Relation Name Status Comments Brother Father Dc veloz Maternal Grandfather Maternal Grandmother Mother Fletcher Irahetaon Paternal Grandfather Paternal Grandmother Sister Social History Tobacco Use Types Packs/Day Years Used Date Smoking Tobacco: Former Cigarettes 1 38 0 07/25/1985 - 07/26/2023 Smokeless Tobacco: Never Tobacco Cessation:Counseling Given: Not Answered AUDIT-C Answer Date Recorded Q1: How often do you have a drink containing alc ohol? Monthly or less 10/28/2024 Q2: How many drinks containi ng alcohol do you have on a typical day when you are drinking? 1 or 2 10/28/2024 Q3: How often do you have si x or more drinks on one occasion? Never 10/28/2024 PHQ-2 Answer Date Recorded PHQ-2 Total Score (If total score is 3 or more points, staff should administer the PHQ-9) 0 10/28/2024 PHQ-9 Answer Date Recorded PHQ-9 Total Score 5 08/14/2024 Personal Safety Answer Date Recorded Have you ever been in or are you currently in a harmful physical or emotional relationship or is someone making you feel afraid or unsafe? Denies 02/07/2024 Comments No Sex and Gender Information Value Date Recorded Sex Assigned at Not on file Legal Sex Female 2:08 AM DRIVER/MERCHANDISER Gender Identity Not on file Sexual Orientation Not on file Obstetrics History Para Term AB IAB SAB Ectopic Multiple Livin g Live Births 2 2 2 Date Outcome GA Total Labor Labor/2nd/3rd Weight Sex Type Anes PTL Maddie A1 A5 Name Clin Term Term Last Filed Vital Signs Vital Sign Reading Time Taken Comments Blood Pressure 124/82 12/01/2024 11:06 AM CDT Pulse 91 12/01/2024 11:06 AM CDT Temperature 36.6 C (97.8 F) 12/01/2024 11:06 AM CDT Respiratory Rate 18 12/01/2024 11:06 AM CDT Oxygen Saturation 96% 12/01/2024 11:06 AM CDT Inhaled Oxygen Concentration - - Weight 60.3 kg (133 lb) 12/01/2024 11:06 AM CDT Height 149.9 cm (4' 11) 12/01/2024 11:06 AM CDT Body Mass Index 26.86 12/01/2024 11:06 AM CDT Plan of Treatment Health Maintenance Due Date Last Done Comments Cervical Cancer Screening 1971 Dilated Eye Exam 1971 Hepatitis B Screening 12/15/1989 Foot Exam 07/29/2024 07/30/2023 Lung Cancer Screening 10/08/2024 10/08/2023 Influenza Vaccine (#1) 2024 01/02/2024, 2022 Zoster Vaccine (2 of 2) 11/25/2024 09/30/2024 Hemoglobin A1C 12/22/2024 06/22/2024, 2023 Lipid Panel 05/05/2025 05/05/2024, 11/24, 08/12/2023, Additional history exists Regular Well Visit/Exam 18-64 05/15/2025 05/15/2024 eGFR 05/22/2025 05/22/2024, 04/25, 02/08/2024, Additional history exists Albumin Creatinine Ratio, Urine 06/22/2025 06/22/2024, 2023, 07/31/2023 Breast Cancer Screening-Mammogram 07/14/2025 07/14/2024, 07/17/2023, 03/10/2020, Additional history exists Depression Screening 10/28/2025 10/28/2024, 08/14/2024, 08/14/2024, Additional history exists Colon Cancer Screening-DNA Stool 08/25/2026 08/26/19 24 DTaP/Tdap/Td Vaccine (2 - Td or Tdap) 07/15/2034 07/15/2024 Hepatitis C Screening Completed 2023 Pneumococcal vaccine <65 Completed 07/15/2024 Medical Devices Implanted Type Area Laundry Assistant Device Identifier Shelf Expiration Date Model / Serial / Lot LiveRe Angio-Seal Vip 6fr Closere Device [id number] - [id number] Implanted:Qty: 1 on 05/22/2024 by Mary Winchester MD at [facility] LiveRe 09/03/2024 [id number] / / [id number] Procedures Procedure Name Priority Date/Time Associated Diagnosis Comments VT APPLICATION FINGER SPLINT STATIC Routine 12/01/2024 12:09 PM CDT Laceration of right index finger without foreign body without damage to nail, initial encounter SCREENING MAMMOGRAM BILATERAL W ROLLY Schedule Routine, Read Routine (OP Routine) 07/14/2024 7:26 AM CDT Screening mammogram, encounter for HEMOGLOBIN A1C Routine 06/22/2024 7:23 AM CDT IFG (impaired fasting glucose) ALBUMIN CREATININE RATIO, URINE Routine 06/22/2024 7:23 AM CDT IFG (impaired fasting glucose) EGFR STAT 05/22/2024 8:21 AM DRIVER/MERCHANDISER LIPID PANEL Routine 05/05/2024 7:57 AM DRIVER/MERCHANDISER Coronary arteriosclerosis HEPATITIS C ANTIBODY Routine 2023 8:22 AM CDT Need for hepatitis C screening test CT LUNG CANCER SCREENING Schedule Routine, Read Routine (OP Routine) 10/08/2023 7:19 AM CDT Nicotine dependence, cigarettes, in remission STOOL DNA COLOGUARD Routine 08/26/2023 6:50 AM CDT Colon cancer screening from Last 3 Months or Most Recently Relevant to Health Maintenance Results * VT APPLICATION FINGER SPLINT STATIC (12/01/2024 12:09 PM CDT) Narrative Lamar Garcia NP - 12/01/2024 12:09 PM CDT Lamar Garcia NP 12/01/2024 7:40 PM Splint Application Date/Time: 12/01/2024 12:09 PM Performed by: Lamar Garcia NP Authorized by: Lamar Garcia NP Consent given by: patient Injury Location details: right index finger Pre-procedure assessment neurovascularly intact Procedure Manipulation performed? no manipulation performed Immobilization: splint Supplies used: aluminum splint Post-procedure assessment neurovascularly intact Patient tolerance: patient tolerated the procedure well with no immediate complications Lamar Garcia NP IN CLINIC/BEDSIDE ORDERABLES Final Result * Screening Mammogram Bilateral W Rolly (07/14/2024 7:26 AM CDT) Anatomical Region Laterality Modality Breast Bilateral Mammography Impressions 07/14/2024 9:18 AM CDT BI-RADS ATLAS category (overall): 2 - Benign There is no mammographic evidence of malignancy. A 1 year screening mammogram is recommended. The patient has been or will be contacted. We recommend annual screening mammography for women at average risk of breast cancer beginning at age 40, based on guidelines of the [employer] (ACR Practice Parameter for the Performance of Screening and Diagnostic Mammography) and [employer]. For women with and elevated risk of breast cancer, please refer to the ACR Practice Parameter for specific screening recommendations. The patient will be entered into a reminder system with a target due date of 1 year for her next screening exam. Narrative 07/14/2024 9:18 AM CDT Screening Mammogram Bilateral W Rolly: 07/14/24 The study was acquired using full field digital technology and interpreted from soft copy. 2D digital mammographic views, as well as 3D digital tomosynthesis were performed in the CC and MLO projections. CLINICAL: Screening mammogram, encounter for. No relevant medical history has been documented for this patient. No known family history of breast cancer. COMPARISONS: 07/17/2023 Screening Mammogram Bilateral W Rolly BREAST TISSUE: There are scattered areas of fibroglandular density. FINDINGS: Unchanged biopsy marker clips in both breasts. There are benign microcalcifications in both breasts. There is no new suspicious finding in either breast on mammogram. us Self Screening Mammogram IMG MAMMO PROCEDURES Fi nal Result * Albumin Creatinine Ratio, Urine (06/22/2024 7:23 AM CDT) Creatinine, ur 142 20 - 275 mg/dL [facility] Microalbumin, ur 1.7 See Note: mg/dL [facility] Comment: Reference Range: Reference Range Not established Microalbumin/creat ratio 12 <30 mg/g creat [facility] Comment: The ADA defines abnormalities in albumin excretion as follows: Albuminuria Category Result (mg/g creatinine) Normal to Mildly increased <30 Moderately increased 30-299 Severely increased > OR = 300 The ADA recommends that at least two of three specimens collected within a 3-6 month period be abnormal before considering a patient to be within a diagnostic category. Urine 06/22/2024 7:23 AM CDT 06/22/2024 7:24 AM CDT Narrative [facility] - 06/23/2024 3:03 AM CDT FASTING:YES FASTING: YES Ashley Dumont MD LAB URINE ORDERABLE S Final Result [facility] [address] [phone] * (ABNORMAL) Hemoglobin A1c (06/22/2024 7:23 AM CDT) Hgb A1C 6.0(H) <5.7 % of total Hgb [facility] Comment: For someone without known diabetes, a hemoglobin A1c value between 5.7% and 6.4% is consistent with prediabetes and should be confirmed with a follow-up test. For someone with known diabetes, a value <7% indicates that their diabetes is well controlled. A1c targets should be individualized based on duration of diabetes, age, comorbid conditions, and other considerations. This assay result is consistent with an increased risk of diabetes. Currently, no consensus exists regarding use of hemoglobin A1c for diagnosis of diabetes for children. Blood 06/22/2024 7:23 AM CDT 06/22/2024 7:24 AM CDT Narrative [facility] - 06/23/2024 3:03 AM CDT FASTING:YES FASTING: YES us Ashley Dumont MD LAB BLOOD ORDERABLE S Final Result [facility] [address] [place] [address] * eGFR (05/22/2024 8:21 AM DRIVER/MERCHANDISER) eGFR >90 >=60 mL/min/1. 73 m2 Comment: Interpretive Data Reference Interval Normal >/= 90 mL/min/1.73m2 Mildly decreased* 60 - 89 mL/min/1.73m2 Mildly to moderately decreased 45 - 59 mL/min/1.73m2 Moderately to severely decreased 30 - 44 mL/min/1.73m2 Severely decreased 15 - 29 mL/min/1.73m2 Kidney Failure < 15 mL/min/1.73m2 *Relative to young adult level Estimated glomerular filtration rate is determined by the 2020 CKD-EPI equation recommended by the National Kidney Foundation (A Unifying Approach to GFR Estimation: Recommendations of the NKF-ASK Task Force on Reassessing the Inclusion of Race in Diagnosing Kidney Disease, JASN 2020). The CKD-EPI equation should not be used for patients with unstable renal function and has not been validated in children and those over 70. Current interpretive data was last reviewed 2021. Testing performed by: [facility], [address] [place] [address]., [id number] Blood 05/22/2024 8:21 AM DRIVER/MERCHANDISER 05/22/2024 8:29 AM DRIVER/MERCHANDISER us Mary Winchester MD LAB BLOOD ORDERABL ES Final Result [facility] Department [place] [address] * (ABNORMAL) Lipid panel (05/05/2024 7:57 AM DRIVER/MERCHANDISER) Cholesterol 189 <200 mg/dL [facility] HDL 50 > OR = 50 mg/dL [facility] Triglycerides 140 <150 mg/dL [facility] LDL 114(H) mg/dL (calc) [facility] Comment: Reference range: <100 Desirable range <100 mg/dL for primary prevention; <70 mg/dL for patients with CHD or diabetic patients with > or = 2 CHD risk factors. LDL-C is now calculated using the Riley-Cinda calculation, which is a validated novel method providing better accuracy than the Friedewald equation in the estimation of LDL-C. Riley SS et al. MYAH. 2013;310(19): 8293-0881 (http://education.ithinksport/faq/UTT883) Chol/HDL ratio 3.8 <5.0 (calc) [facility] Non-HDL, (LDL+VLDL) 139(H) <130 mg/dL (calc) [facility] Comment: For patients with diabetes plus 1 major ASCVD risk factor, treating to a non-HDL-C goal of <100 mg/dL (LDL-C of <70 mg/dL) is considered a therapeutic option. Blood 05/05/2024 7:57 AM DRIVER/MERCHANDISER 05/05/2024 7:58 AM DRIVER/MERCHANDISER Narrative [facility] - 05/06/2024 7:42 AM DRIVER/MERCHANDISER FASTING:YES FASTING: YES us Ashley Dumont MD LAB BLOOD ORDERABLE S Final Result [facility] [address] [phone] * Hepatitis C antibody Blood (2023 8:22 AM CDT) Hep C Ab NON-REACTI VE NON-REACT [facility]ONI [facility] Comment: HCV antibody was non-reactive. There is no laboratory evidence of HCV infection. In most cases, no further action is required. However, if recent HCV exposure is suspected, a test for HCV RNA (test code 38849) is suggested. For additional information please refer to http://education.Plex/faq/YUN30a8 (This link is being provided for informational/ educational purposes only.) Blood 2023 8:22 AM CDT 2023 8:22 AM CDT Narrative [facility] - 12/18/2023 2:11 AM CDT FASTING:YES FASTING: YES us Ashley Dumont MD LAB MICROBIOLOGY - GENERAL ORDERABLES Final Result [facility] [address] [place] [address] * CT Lung Cancer Screening (10/08/2023 7:19 AM CDT) Anatomical Region Laterality Modality Chest N/A Computed Tomogra phy 10/09/2023 8:46 AM CDT Narrative 10/09/2023 9:14 AM CDT EXAM DESCRIPTION: CT LUNG CANCER SCREENING REASON FOR STUDY: Screening CT of the chest in a former smoker with a 39 pack year smoking history. Additional history: None. TECHNIQUE: Low dose CT scan of the chest was performed without intravenous contrast using helical scanning technique. The exam extends from the lung apices through the lung bases. Automatic exposure control was used as a dose optimization technique. NOTE: This study was performed for the specific purposes of lung cancer screening and is not an alternative to diagnostic chest CT. RADIATION DOSE: CT dose index volume (CTDIvol) = 2.86 mGy COMPARISON: None FINDINGS: SMOKING RELATED LUNG DISEASE: Minimal emphysema. Mild central bronchial wall thickening is noted. LUNG NODULES: There are a few scattered tiny nodules bilaterally. For instance, a 2 mm nodules in the left apex on images 38 and 39, and a 2 mm nodule in the posterior right upper lobe on image number 65 similar tiny nodules are scattered throughout both lungs. 5 mm nodule left lower lobe image 222. CORONARY ARTERY CALCIFICATION: Present OTHER: There is no pneumonic consolidation. Mild subsegmental scarring and atelectasis is noted. There is no effusion or pneumothorax. The visualized thyroid gland is unremarkable. There is no mediastinal or hilar lymphadenopathy. The esophagus is unremarkable. The heart is normal in size without pericardial effusion. Atherosclerotic calcification of the aorta without aneurysm. There are scattered axillary nodes. No suspicious lymphadenopathy. Scattered somewhat dense fibroglandular tissue. Correlate with results of mammography in June 2023. The visualized upper abdomen reveals diverticulosis. There is cervical and thoracic spondylosis with degenerative disc disease. No acute osseous abnormality. IMPRESSION: Minimal emphysema. Scattered tiny bilateral pulmonary nodules. 5 mm nodule in the left lower lobe. Coronary artery calcifications. Additional findings as above. Lung-RADS category 2: Benign appearance or behavior. Recommendation: Low dose Screening CT of chest in 12 months. THIS IS AN ELECTRONICALLY VERIFIED FINAL REPORT 10/09/2023 9:14 AM - Electronically signed by Lucia Cohen M.D. TW: TW Report ID: [id number] Reading Location: [place] [address] Procedure Note Lucia Cohen MD - 10/09/2023 EXAM DESCRIPTION: CT LUNG CANCER SCREENING REASON FOR STUDY: Screening CT of the chest in a former smoker with a39 pack year smoking history. Additional history: None. TECHNIQUE: Low dose CT scan of the chest was performed without intravenous contrast using helical scanning technique. The exam extends from the lung apices through the lung bases. Automatic exposure control was used as adose optimization technique. NOTE: This study was performed for the specific purposes of lung cancer screening and is not an alternative to diagnostic chest CT. RADIATION DOSE: CT dose index volume (CTDIvol) = 2.86 mGy COMPARISON: None FINDINGS: SMOKING RELATED LUNG DISEASE: Minimal emphysema. Mildcentral bronchial wall thickening is noted. LUNG NODULES: There are a few scattered tiny nodules bilaterally. For instance, a 2 mm nodules in the left apex on images 38 and 39, and a 2 mm nodule in the posterior right upper lobe on image number 65 similar tiny nodules are scattered throughout both lungs. 5 mm nodule left lower lobe image 222. CORONARY ARTERY CALCIFICATION: Present OTHER: There is no pneumonic consolidation. Mild subsegmental scarringand atelectasis is noted. There is no effusion or pneumothorax. Thevisualized thyroid gland is unremarkable. There is no mediastinal or hilar lymphadenopathy. The esophagus is unremarkable. The heart is normal insize without pericardial effusion. Atherosclerotic calcification of the aorta without aneurysm. There are scattered axillary nodes. No suspicious lymphadenopathy. Scattered somewhat dense fibroglandular tissue.Correlate with results of mammography in June 2023. The visualized upper abdomen reveals diverticulosis. There is cervical and thoracic spondylosis with degenerative disc disease. No acute osseous abnormality. IMPRESSION: Minimal emphysema. Scattered tiny bilateral pulmonary nodules. 5 mm nodule in the left lower lobe. Coronary artery calcifications. Additional findings as above. Lung-RADS category 2: Benign appearance or behavior. Recommendation: Low dose Screening CT of chest in 12 months. THIS IS AN ELECTRONICALLY VERIFIED FINAL REPORT 10/09/2023 9:14 AM - Electronically signed by Lucia Cohen M.D. TW: TW Report ID: [id number] Reading Location: [place] [address] [place] MD [facility] CT PROCEDURES Celeste l Result * Stool DNA - Cologuard (08/26/2023 6:50 AM CDT) Stool DNA - Cologuard Negative Negative [employer] (CLIA #:[id number]) Comment: NEGATIVE TEST RESULT. A negative Cologuard result indicates a low likelihood that a colorectal cancer (CRC) or advanced adenoma (adenomatous polyps with more advanced pre-malignant features) is present. The chance that a person with a negative Cologuard test has a colorectal cancer is less than 1 in 1500 (negative predictive value >99.9%) or has an advanced adenoma is less than 5.3% (negative predictive value 94.7%). These data are based on a prospective cross-sectional study of 10,000 individuals at average risk for colorectal cancer who were screened with both Cologuard and colonoscopy. (Tanvi Lopez al, N Engl J Med 2014;370(14):1973-4828) The normal value (reference range) for this assay is negative. COLOGUARD RE-SCREENING RECOMMENDATION: Periodic colorectal cancer screening is an important part of preventive healthcare for asymptomatic individuals at average risk for colorectal cancer. Following a negative Cologuard result, the [employer] Cancer Society and U.S. Multi-Society Task Force screening guidelines recommend a Cologuard re-screening interval of 3 years. References: [employer] Cancer Society Guideline for Colorectal Cancer Screening: https://www.cancer.org/cancer/jhzbn-rbyjjt-fwatgl/wvxuiquof-ehzkapasg-ekjwsjm/ac s-rec ommendations.html.; Hussain DK, Patti MORE, Donis SpearsK, Colorectal Cancer Screening: Recommendations for Physicians and Patients from the U.S. Multi-Society Task Force on Colorectal Cancer Screening , Am J Gastroenterology 2017; 112:8989-7909. TEST DESCRIPTION: Composite algorithmic analysis of stool DNA-biomarkers with hemoglobin immunoassay. Quantitative values of individual biomarkers are not reportable and are not associated with individual biomarker result reference ranges. Cologuard is intended for colorectal cancer screening of adults of either sex, 45 years or older, who are at average-risk for colorectal cancer (CRC). Cologuard has been approved for use by the U.S. FDA. The performance of Cologuard was established in a cross sectional study of average-risk adults aged 50-84. Cologuard performance in patients ages 45 to 49 years was estimated by sub-group analysis of near-age groups. Colonoscopies performed for a positive result may find as the most clinically significant lesion: colorectal cancer [4.0%], advanced adenoma (including sessile serrated polyps greater than or equal to 1cm diameter) [20%] or non- advanced adenoma [31%]; or no colorectal neoplasia [45%]. These estimates are derived from a prospective cross-sectional screening study of 10,000 individuals at average risk for colorectal cancer who were screened with both Cologuard and colonoscopy. (Tanvi Negrete, N Engl J Med 2014;370(14):7985-7509.) Cologuard may produce a false negative or false positive result (no colorectal cancer or precancerous polyp present at colonoscopy follow up). A negative Cologuard test result does not guarantee the absence of CRC or advanced adenoma (pre-cancer). The current Cologuard screening interval is every 3 years. ([employer] Cancer Society and U.S. Multi-Society Task Force). Cologuard performance data in a 10,000 patient pivotal study using colonoscopy as the reference method can be accessed at the following location: www.[employer]/results. Additional description of the Cologuard test process, warnings and precautions can be found at www.cologuard.com. Stool 08/26/2023 6:50 AM CDT 08/27/2023 8:14 AM CDT us Ashley Dumont MD LAB BODY FLUIDS AND STOOLS ORDERABLES Final Result [employer] (CLIA #:[id number]) [address] [place] [address] from Last 3 Months or Most Recently Relevant to Health Maintenance Insurance [facility] [employer] CHOICE [address] [place] [id number] [facility] ACCESS CHOICE Advance Directives For more information, please contact: [phone] * Full Code (Latest Code Status on File) Date Activated Date Inactivated Comments 05/22/2024 2:09 PM 05/22/2024 8:45 PM * Full Code Date Activated Date Inactivated Comments 02/07/2024 2:25 PM 02/09/2024 4:31 PM * Full Code Date Activated Date Inactivated Comments 07/26/2023 7:55 PM 07/28/2023 7:30 PM Care Teams Soakers Supervisor Relationship Specialty Start Date End Date Ashley Dumont MD [address] [place], [place] [id number] PCP - General Family Medicine 07/30/23
--- OUTSIDE RECORDS SUMMARY | 2024-12-24 01:21 | XMS_ITS | Clinical Summary ---
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 Gender Identity Not on file Sexual Orientation Not on file Plan of Treatment Health Maintenance Due Date Last Done Comments Hepatitis C Virus (HCV) Screening 1971 TdaP Immunization 1971 Hepatitis B Immunization (1 of 3 - 19+ 3-dose series) 12/15/1990 Pap Smear 12/15/1992 Cervical Cancer Screening (CCS) 12/15/2001 HPV/Cotest 12/15/2001 Cologuard 12/15/2016 Colonoscopy 12/15/2016 Colorectal Cancer Screening 12/15/2016 Immunochemical Fecal Occult Blood 12/15/2016 Pneumococcal Immunization (5 0+ years) (1 of 1 - PCV) 12/15/2021 Zoster Immunization (1 of 2) 12/15/2021 Influenza Immunization (#1) 2024 SARS-COV-2 Immunization ( - season) 2024 Respiratory Syncytial Virus (RSV) Immunization (Adult) (1 - 1-dose 75+ series) 12/15/2046 Human Papillomavirus (HPV) Immunization Aged Out No longer eligible b ased on patient's age to complete this topic Meningococcal Immunization (ACWY) Aged Out No longer eligible based on patient's age to complete this topic Rotavirus Immunization Aged Out No lo nger eligible based on patient's age to complete this topic
--- OUTSIDE RECORDS SUMMARY | 2024-12-24 01:21 | XMS_ITS | Clinical Summary ---
Author Organization [facility] Address [facility] [place] [address] Care Team Providers Care Divorce Attorney Name Role Phone Norma Childress MD Primary Care Provider [phone] Allergies Active Allergy Reactions Criticality Noted Date Comments Azithromycin Nausea and Vomiting, Other (see comment),Redness Low 02/07/2024 Diaphoresis Sulfa Antibiotics Hives Medium 07/26/2023 Medications albuterol sulfate HFA 108 (90 Base) MCG/ACT inhaler Inhale 2 puffs every 4 hours by inhalation route. Active BREZTRI AEROSPHERE 160-9-4.8 MCG/ACT inhaler USE 2 INHALATIONS TWICE A DAY, RINSE MOUTH WITH WATER AFTER USE, DO NOT SWALLOW 07/27/19 24 Active Blood Glucose Monitoring Suppl (FREESTYLE LITE) w/Device Kit 10/09/19 24 Active buPROPion SR (WELLBUTRIN SR) 150 MG 12 hr tablet Take by mouth 2 (two) times daily. Active busPIRone (BUSPAR) 5 MG tablet Take 1 tablet (5 mg total) by mouth 2 (two) times daily. 05/06/19 25 Active Calcium Carbonate Antacid 648 MG Tab Take 260 mg by mouth daily. Active Cholecalciferol 50 MCG (1999 UT) Cap Take 1 capsule by oral route. Active DUPIXENT 300 MG/2ML injection 04/07/19 25 Active ezetimibe (ZETIA) 10 MG tablet Take 1 tablet (10 mg total) by mouth daily. 08/25/19 25 026 Active FREESTYLE LITE test strip daily. 10/10/19 24 Active Glucose Blood (FREESTYLE LITE) test strip see administration instructions. 12/23/19 24 Active hydrocortisone 2.5 % cream Active ipratropium-albute rol (DUONEB) 0.5-2.5 (3) MG/3ML Solution 07/27/19 24 Active Lancets (FREESTYLE) lancets 03/15/20 24 Active lisinopril-hydroCH LOROthiazide (ZESTORETIC) 20-12.5 MG tablet Take by mouth daily. 12/07/19 24 Active MAGNESIUM OR Take 250 mg by mouth daily. Active metFORMIN ER (GLUCOPHAGE-XR) 500 MG 24 hr tablet 07/30/19 24 Active montelukast (SINGULAIR) 10 MG tablet 01/15/20 24 Active Multiple Vitamin (MULTI-VITAMIN) tablet Take 1 tablet by mouth daily. Active nystatin (MYCOSTATIN) cream APPLY TO THE AFFECTED AREA(S) BY TOPICAL ROUTE 2 TIMES PER DAY as needed Active OMEGA-3 FATTY ACIDS OR 06/02/19 25 Active ondansetron (ZOFRAN-ODT) 8 MG disintegrating tablet 04/02/19 24 Active ZEPBOUND 15 MG/0.5ML injection 04/03/19 24 Active triamcinolone (KENALOG) 0.1 % cream 10/25/19 24 Active isosorbide dinitrate (ISORDIL) 10 MG tablet 05/11/19 25 Active progesterone (PROMETRIUM) 200 MG capsule 09/05/19 25 Active ASPIRIN EC 81 MG tablet 09/05/19 25 Active Active Problems No known active problems Encounters Date Type Department Care Team Description 09/28/2024 8:00 AM CDT Office Visit [facility] [address] [place] [address] [employer] Pain[employer] PA-C Mueller, Abbie T, NURSING ASSOCIATE Shoulder Pain 09/28/2024 Travel 09/23/2024 7:15 AM CDT Office Visit [facility] [address] [place] [address] [employer] Pain[employer] PA-C Collins, Sabrina R, NURSING ASSOCIATE Shoulder Pain 09/23/2024 Travel from Last 3 Months Social History Tobacco Use Types Packs/Day Years Used Date Smoking Tobacco: Former Cigarettes 1.5 38 Q uit: 07/27/2023 Smokeless Tobacco: Former Tobacco Cessation:Counseling Given: No Comments:na Alcohol Use Standard Drinks/Week Comments Not Currently 0 (1 standard drink = 0.6 oz pur e alcohol) PHQ-2 Answer Date Recorded Patient Health Questionnaire-2 Score 0 08/25/2024 Comments No Sex and Gender Information Value Date Recorded Sex Assigned at Female 08/18/2024 7:15 AM CDT Legal Sex Female 8:33 PM CDT Gender Identity Not on file Sexual Orientation Not on file Last Filed Vital Signs Vital Sign Reading Time Taken Comments Blood Pressure 135/88 09/18/2024 10:08 AM CDT Pulse 85 09/18/2024 10:08 AM CDT Temperature - - Respiratory Rate - - Oxygen Saturation - - Inhaled Oxygen Concentration - - Weight 63 kg (139 lb) 08/25/2024 1:18 PM CDT Height 160 cm (5' 3) 08/25/2024 1:18 PM CDT Body Mass Index 24.62 08/25/2024 1:18 PM CDT Plan of Treatment Health Maintenance Due Date Last Done Comments Cervical Cancer Screening Pap Smear (Age 30 to 64) Every 3 Years 1971 Colorectal Cancer Screening Colonoscopy (10 Years) 1971 Annual Physical 12/15/1974 Hepatitis C 12/15/1989 Hepatitis B Vaccines (1 of 3 - 19+ 3-dose series) 12/15/1990 Cervical Cancer Screening Pap with HPV Testing (Age 30 to 64) Every 5 Years 12/15/2001 Cervical Cancer Screening with HPV 12/15/2001 Lung Cancer Screening 12/15/2021 Zoster Vaccines (1 of 2) 12/15/2021 COVID-19 Vaccine (1 - 2023- season) 2024 Mammogram Screening 07/14/2026 07/14/2024, 07/17/2023, 03/10/2020, Additional history exists DTaP, Tdap and Td Vaccines (2 - Td or Tdap) 07/15/2034 07/15/2024 Pneumococcal Vaccine: 50+ Years Completed 07/15/2024 PHQ-2 (Physician [place]) Completed 08/25/2024 Meningococcal B Vaccine Aged Out No l onger eligible based on patient's age to complete this topic Meningococcal Vaccine Aged Out No phoebe evelia eligible based on patient's age to complete this topic RSV Immunizations Under 20 Months Aged Out No longer eligible based on patient's age to complete this topic Insurance [facility] Care Teams Divorce Attorney Relationship Specialty Start Date End Date Norma Childress MD [address] [place] [address] PCP - General 06/02/12
[2024-12-24 06:46] VITALS: BP 127/81; PULSE 83; RESP 18; TEMP 36.2; O2SAT 98
[2024-12-24 06:47] VITALS: BMI 27.6
--- NOTE | 2024-12-24 06:51 | WPDANESEPPF ---
Anes - Initial Pre Proc Eval Procedure: Operation Date: 12/24/24 08:00 Proposed Procedures p Diagnostic Colonoscopy - David Strickland MD Date/Time: 12/24/24 06:51 Surgeon: David Strickland MD Pre Op Diagnosis: Anemia, unspecified Patient Data Age: 54 Gender: F Height: 1.5 m Weight: 62.1 kg Last Vital Signs Temp 36.2 C L 12/24/24 06:46 Pulse 83 12/24/24 06:46 Resp 18 12/24/24 06:46 BP 127/81 12/24/24 06:46 Pulse Ox 98 12/24/24 06:46 O2 Del Method Room Air 12/24/24 06:46 Allergies Allergy/AdvReac Type Severity Reaction Status Date / Time azithromycin AdvReac Mild Nausea and Verified 11/19/24 13:09 Vomiting Sulfa Allergy Mild Hives Uncoded 11/19/24 13:09 Home Medications ?Medication ?Instructions ?Recorded ?Confirmed ?Type albuterol sulfate 90 mcg/actuation 2 inh inhalation QID 04/01/24 11/19/24 History breath activated powder inhaler budesonide 160 mcg-glycopyr 9 2 inh inhalation BID 04/01/24 12/24/24 History mcg-formot 4.8 mcg/actuation HFA inhaler bupropion HCl 150 mg 24 hr tablet, 150 mg PO BID 04/01/24 12/24/24 History extended release calcium carbonate 260 mg PO DAILY 04/01/24 12/24/24 History cholecalciferol (vitamin D3) 50 50 mcg PO DAILY 04/01/24 12/24/24 History mcg (2,000 unit) capsule lisinopril 20 1 tablet PO DAILY 04/01/24 12/24/24 History mg-hydrochlorothiazide 12.5 mg tablet magnesium oxide 250 mg PO DAILY 04/01/24 12/24/24 History metformin 500 mg tablet 500 mg PO BID 04/01/24 12/24/24 History multivitamin 1 tablet PO DAILY 04/01/24 12/24/24 History nystatin-triamcinolone 100,000 1 applic topical BID 04/01/24 11/19/24 History unit/g-0.1 % topical cream ondansetron 8 mg disintegrating 8 mg PO Q8H PRN nausea and vomiting 04/01/24 11/19/24 History tablet tirzepatide (weight loss) 15 15 mg subcut WEEKLY 04/01/24 11/19/24 History mg/0.5 mL subcutaneous pen injector (Zepbound) dupilumab 300 mg/2 mL subcutaneous 300 mg subcut .every other week 10/06/24 11/19/24 History pen injector (Dupixent) semaglutide (weight loss) 0.25 0.25 mg subcut WEEKLY 12/16/24 12/16/24 History mg/0.5 mL subcutaneous pen injector (Wegovy) Patient hx anesthesia problems: none Family hx anesthesia problems: none Results Review: All pre-operative results and documents have been reviewed as part of the pre-operative evaluation. [facility] Past Medical History Medical History Chronic bronchitis Thrombocythemia Rash Acute cough Class 1 obesity Depression Vitamin D deficiency Hyperlipidemia Fatigue Cobalamin deficiency IFG (impaired fasting glucose) COPD (chronic obstructive pulmonary disease) Hyponatremia Leucocytosis Sepsis Tobacco dependence History of hypertension Hypoxia Social History Social History Smoking packs per day: 1 Smoking cigarettes per day: 20.0 Smoking status: Former smoker Tobacco type: cigarettes Smoking end date: 07/26/23 Alcohol intake: current Drinks per week: 2 Alcohol use details: Social Substance use: never Substance use type: does not use Living arrangements: with family Spiritual care concerns: No Anes - Eval Final PreProcedure Day of Procedure 12/24/24 06:51 Patient weight: overweight Heart: regular rate and rhythm Lungs: clear to auscultation Airway: Mallampati scale class II Neurological: alert and oriented Last oral intake: >/= 8 hours ASA classification: III Emergent: no Anesthetic plan: proceed Anesthesia type and monitoring: general GIVS and standard monitoring Results Review: All pre-operative results and documents have been reviewed as part of the pre-operative evaluation. Informed Consent: The patient's anesthetic plan and its attendant risks and benefits were discussed with the patient/family/POA. Questions were solicited and answers provided to the satisfaction of the patient/family/POA.
[2024-12-24] MEDS: LACTATED RINGERS 1,000 ML 150 ML IV CONT (07:16)
--- NOTE | 2024-12-24 07:59 | PM.IMHP ---
H&P: HPI History of Present Illness Date/Time: 12/24/24 07:59 Chief Complaint: Screening colonoscopy Narrative: This is the patient's first colonoscopy. There are no GI symptoms and there is no family history of colorectal cancer. Review of Systems Review of Systems: All systems reviewed & are unremarkable except as noted in HPI and below PMFSH Past Medical History Medical History Chronic bronchitis Thrombocythemia Rash Acute cough Class 1 obesity Depression Vitamin D deficiency Hyperlipidemia Fatigue Cobalamin deficiency IFG (impaired fasting glucose) COPD (chronic obstructive pulmonary disease) Hyponatremia Leucocytosis Sepsis Tobacco dependence History of hypertension Hypoxia Social History Social History Smoking packs per day: 1 Smoking cigarettes per day: 20.0 Smoking status: Former smoker Tobacco type: cigarettes Smoking end date: 07/26/23 Alcohol intake: current Drinks per week: 2 Alcohol use details: Social Substance use: never Substance use type: does not use Living arrangements: with family Spiritual care concerns: No Meds Home Medications and Allergies Home Medications ?Medication ?Instructions ?Recorded ?Confirmed ?Type albuterol sulfate 90 mcg/actuation 2 inh inhalation QID 04/01/24 11/19/24 History breath activated powder inhaler budesonide 160 mcg-glycopyr 9 2 inh inhalation BID 04/01/24 12/24/24 History mcg-formot 4.8 mcg/actuation HFA inhaler bupropion HCl 150 mg 24 hr tablet, 150 mg PO BID 04/01/24 12/24/24 History extended release calcium carbonate 260 mg PO DAILY 04/01/24 12/24/24 History cholecalciferol (vitamin D3) 50 50 mcg PO DAILY 04/01/24 12/24/24 History mcg (2,000 unit) capsule lisinopril 20 1 tablet PO DAILY 04/01/24 12/24/24 History mg-hydrochlorothiazide 12.5 mg tablet magnesium oxide 250 mg PO DAILY 04/01/24 12/24/24 History metformin 500 mg tablet 500 mg PO BID 04/01/24 12/24/24 History multivitamin 1 tablet PO DAILY 04/01/24 12/24/24 History nystatin-triamcinolone 100,000 1 applic topical BID 04/01/24 11/19/24 History unit/g-0.1 % topical cream ondansetron 8 mg disintegrating 8 mg PO Q8H PRN nausea and vomiting 04/01/24 11/19/24 History tablet tirzepatide (weight loss) 15 15 mg subcut WEEKLY 04/01/24 11/19/24 History mg/0.5 mL subcutaneous pen injector (Zepbound) dupilumab 300 mg/2 mL subcutaneous 300 mg subcut .every other week 10/06/24 11/19/24 History pen injector (Dupixent) semaglutide (weight loss) 0.25 0.25 mg subcut WEEKLY 12/16/24 12/16/24 History mg/0.5 mL subcutaneous pen injector (Wegovy) Allergies Allergy/AdvReac Type Severity Reaction Status Date / Time azithromycin AdvReac Mild Nausea and Verified 11/19/24 13:09 Vomiting Sulfa Allergy Mild Hives Uncoded 11/19/24 13:09 Vital Signs Vital Signs - 24 hr 12/24/24 06:46 Temperature 97.2 F L Pulse Rate 83 Respiratory Rate 18 Blood Pressure 127/81 Pulse Oximetry 98 Oxygen Delivery Room Air Exam Const: General: cooperative and healthy appearing Resp: Effort & Inspection: normal respiratory effort and able to speak in complete sentences Auscultation: clear to auscultation bilaterally Cardio: Rate: regular rate Rhythm: regular rhythm GI: Inspection: normal to inspection GI Palp: No No hepatosplenomegaly present Auscultation: normal bowel sounds Rectal Exam: deferred Skin: General skin exam: normal color Psych: Appearance: grossly normal Mental Status: mental status grossly normal Assessment and Plan Assessment and plan (1) Encounter for screening colonoscopy: Code(s): Z12.11 - Encounter for screening for malignant neoplasm of colon Status: Acute Assessment and Plan: The patient is deemed a good candidate for the procedure. Consent signed. Will proceed.
[2024-12-24 08:24] VITALS: BP 90/52; PULSE 92; RESP 16; O2SAT 100
[2024-12-24 08:34] VITALS: BP 116/72; PULSE 96; RESP 20; O2SAT 100
[2024-12-24 08:44] VITALS: BP 124/69; PULSE 92; RESP 20; O2SAT 100
== END 2024-12-24 08:55 | disposition home or self-care (01) ==
PROVIDERS: PCP Family Medicine; Referring Provider Nurse Practitioner Family; Visit Provider Internal Medicine Gastroenterology
PROC: 0DJD8ZZ Inspection of Lower Intestinal Tract, Via Natural or Artificial Opening Endoscopic (ICD-10-PCS; CPT 45378; principal; 2024-12-24 08:00)
DX: Z12.11 Encounter for screening for malignant neoplasm of colon (principal); K57.30 Diverticulosis of large intestine without perforation or abscess without bleeding; K64.8 Other hemorrhoids; D64.9 Anemia, unspecified; Z87.891 Personal history of nicotine dependence; Z79.85 Long-term (current) use of injectable non-insulin antidiabetic drugs
CPT/HCPCS: 45378; 82948; J2003; J2704; J7120